=== PATIENT | male | born 1965 | race Caucasian/White ===

== ENCOUNTER 2024-05-07 07:14 | Day surgery (SDC) | payer BC, SELFPAY ==
[2024-05-07] VITALS (12 sets, daily range): BP systolic 124–149; BP diastolic 80–103; PULSE 61–85; RESP 13–17; TEMP 35.9–37; O2SAT 95–100; BMI 24.0
--- OUTSIDE RECORDS SUMMARY | 2024-05-07 07:20 | XMS_ITS | Clinical Summary ---
Author Organization [facility] Address [place], [place] [address] Care Team Providers Care Aviation Technician Name Role Phone Drake Coelho MD Primary Care Provider [phone] Allergies No known active allergies Medications No known medications Active Problems Problem Noted Date Diagnosed Date Routine adult health maintenance 05/16/2018 Overview (05/16/2018): Colonoscopy 04/2018 normal, repeat in 10 years Encounters Date Type Department Care Team Description 04/29/2024 8:50 AM TILE GRINDER Office Visit [facility] [address] [place] [address] Drake Coelho MD Preoperative Exam (Hernia repair 05/07) 04/29/2024 Travel 04/25/2024 Travel 04/01/2024 1:00 PM TILE GRINDER Office Visit [facility] [address] [address] Meli Lopez MD Derm Problem 04/01/2024 Travel 03/28/2024 Travel 03/11/2024 Telephone [facility] [address] [place] [address] Blanca Diallo MD Surgery Scheduled 03/05/2024 12:45 PM TILE GRINDER Nurse/Clinic Staff Only [facility] [address] [place] [address] Immunization/Injecti on (Typhoid) 03/05/2024 Travel 02/29/2024 Travel 02/18/2024 Telephone [facility] [address] [place] [address] Alice Stapleton MD Questions (IN REGARDS TO SHOT TYPHOID) from Last 3 Months Immunizations Name Administration Dates Next Due Hepatitis A (Adult) 12/18/2023,08/11/2014 Influenza, IIV3 (Age >=3 years) 12/03/2012 Tdap 12/03/2012 Typhoid (injectable) 03/05/2024,08/11/2014 Zoster (Shingrix-RZV, recombinant) 06/17/2020, Family History Medical History Relation Name Comments Alcoholism Brother Isidro Dementia Father Lewy Body Diabetes type II Father Hyperlipidemia Father Hypertension Father Heart Disease Maternal Grandfather mi at 79 and from this. Hyperlipidemia Mother Thyroid Disease Mother Cancer-prostate Paternal Grandfather at age 63 from prostate cancer Cancer-breast No Family History Relation Name Status Comments Brother Isidro Daughter 1 symone Alive Daughter 2 anna Alive Father Alive Maternal Grandfather Mother Alive Other bernard Alive Paternal Grandfather Sister 1 Kaley Sister 2 Isabel Alive Son lourdes Alive Social History Tobacco Use Types Packs/Day Years Used Date Smoking Tobacco: Never Smokeless Tobacco: Never Tobacco Cessation:Counseling Given: Yes Alcohol Use Standard Drinks/Week Comments Yes 3 (1 standard drink = 0.6 oz pur e alcohol) PHQ-2 Answer Date Recorded PHQ-2 TOTAL SCORE 0 12/18/2023 Social Connections Answer Date Recorded Do you often feel lonely or isolated from those around you? 0 12/18/2023 Alcohol Use Answer Date Recorded How often do you have a drink containing alcohol ? 3 04/29/2024 How many drinks containing a lcohol do you have on a typical day when you are drinking? 0 04/29/2024 How often do you have five or more drinks on one occasion? 0 04/29/2024 Financial Resource Strain Answer Date R ecorded Difficulty of Paying Living Expenses 3 12/18/2023 Difficulty of Paying Living Expenses Not on file 12/18/2023 Food Insecurity Answer Date Recorded Do you worry your food will run out before you are able to buy more? 1 12/18/2023 Transportation Needs Answer Date Record ed Does lack of transportation keep you from medica l appointments? 1 12/18/2023 Does lack of transportation keep you from work, meetings or getting things that you need? 1 12/18/2023 Housing Stability Answer Date Recorded What is your housing situation today? 1 12/18/2023 Utilities Answer Date Recorded Do you have trouble paying f or utilities (for example, heat, electricity, water, phone)? 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 Not on file Not on file Travel History Travel Start Travel End [place] 04/13/2024 04/17/2024 [place] 04/09/2024 04/13/2024 Obstetrics History Last Filed Vital Signs Vital Sign Reading Time Taken Comments Blood Pressure 124/76 04/29/2024 9:21 AM TILE GRINDER Pulse 74 04/29/2024 8:55 AM TILE GRINDER Temperature 36.3 C (97.4 F) 04/29/2024 8:55 AM TILE GRINDER Respiratory Rate - - Oxygen Saturation 99% 04/29/2024 8:55 AM TILE GRINDER Inhaled Oxygen Concentration - - Weight 77.9 kg (171 lb 11.2 oz) 04/29/2024 8:55 AM TILE GRINDER Height 182 cm (5' 11.65) 04/29/2024 8:55 AM TILE GRINDER Body Mass Index 23.51 04/29/2024 8:55 AM TILE GRINDER Plan of Treatment Upcoming Encounters Date Type Department Care Team (Late st Contact Info) Description 05/07/2024 8:00 AM TILE GRINDER Office Visit [facility] [address] [place] [address] Blanca Diallo MD [address] [place] [address] Health Maintenance Due Date Last Done Comments HIV for age 15-65 08/21/1982 Hepatitis C screening for ag e 18-79 08/21/1985 Pneumococcal series for age 50+ (1 of 1 - PCV) 08/21/2017 Tetanus booster 12/03/2022 12/03/2012 COVID-19 vaccine series (2023- season) 2023 Influenza for age 50-64 11/24/2023 12/03/2012 Depression screening for age 12+ 12/17/2024 12/18/19 24 BMI (ht and wt on same day) for age 18+ 04/29/2025 04/29/2024, 12/18/2023 Colonoscopy through age 75 05/16/202805/16, 05/16/2018, 05/16/2018, Additional history exists Lipids for age 45-75 12/12/2028 12/13/2023, 02/23/2015, 11/26/2012, Additional history exists Tdap Completed 12/03/2012 Zoster (shingles) series for age 50+ Completed 06/17/2020, 03/02/2020 Procedures Procedure Name Priority Date/Time Associated Diagnosis Comments LIPID PANEL W REFLEX MEASURED LDL Routine 12/13/2023 11:02 AM CDT Lipid screening COLONOSCOPY 05/16/2018 8:31 AM TILE GRINDER from Last 3 Months or Most Recently Relevant to Health Maintenance Results * (ABNORMAL) LIPID PANEL W REFLEX MEASURED LDL (12/13/2023 11:02 AM CDT) CHOLESTEROL, TOTAL 214(H) <200 mg/dL [facility] HDL CHOLESTEROL 54 > OR = 40 mg/dL [facility] TRIGLYCERIDES 43 <150 mg/dL [facility] LDL-CHOLESTEROL 147(H) mg/dL (calc) [facility] Comment: Reference range: <100 Desirable range <100 mg/dL for primary prevention; <70 mg/dL for patients with CHD or diabetic patients with > or = 2 CHD risk factors. LDL-C is now calculated using the Bhanu-Kymberly calculation, which is a validated novel method providing better accuracy than the Friedewald equation in the estimation of LDL-C. Bhanu DEVINE et al. PILAR. 2013;310(19): 9126-6576 (http://education.Maintenance Assistant/faq/JWS358) CHOL/HDLC RATIO 4.0 <5.0 (calc) [facility] NON HDL CHOLESTEROL 160(H) <130 mg/dL (calc) [facility] Comment: For patients with diabetes plus 1 major ASCVD risk factor, treating to a non-HDL-C goal of <100 mg/dL (LDL-C of <70 mg/dL) is considered a therapeutic option. Blood BLOOD SPECIMEN / Unknown 12/13/2023 11:02 AM CDT 12/13/2023 11:04 AM CDT Drake Coelho MD CHEMISTRY Final Resu lt [employer] [facility] [address] [place] [address], [employer] [facility] [address] [place] [address] * COLONOSCOPY (05/16/2018 8:31 AM TILE GRINDER) 05/16/2018 8:31 AM TILE GRINDER Narrative Transcriptions Bhanu Hinojosa MD - 05/16/2018 9:04 AM CST Patient Name: Fredi Aden Procedure Date: 05/16/2018 Gender: Male Date of : 1965 Admit Type: Outpatient Procedure: Colonoscopy Proceduralist: Bhanu Hinojosa MD , Lizet Arnold (Nurse) Indications/Pre-Op Diagnosis: Screening for colorectal malignant neoplasm, Last colonoscopy: September 2007 Medications: None Procedure Description: The patient had risks, benefits and alternatives explained to andgave informed consent. The patient had a stable cardiopulmonary status and judged an adequate candidate for conscious sedation. The Colonoscope was passed through the anus and advanced to thececum, identified by appendiceal orifice and ileocecal valve. Thecolonoscopy was performed without difficulty. The patient tolerated the procedure well. The quality of the bowel preparation was good. The ileocecal valve, appendiceal orifice, and rectum were photographed. Complications: No immediate complications. Estimated Blood Loss & Specimen: Estimated blood loss: none. Specimen collected - None Findings: The perianal and digital rectal examinations were normal. The entire examined colon appeared normal on direct and retroflexion views. Impressions/Post-Op Diagnosis: - The entire examined colon is normal on direct and retroflexionviews. - No specimens collected. Recommendation: - Patient has a contact number available for emergencies. The signsand symptoms of potential delayed complications were discussed with the patient. Return to normal activities tomorrow. Written discharge instructions were provided to the patient. - Resume previous diet. - Continue present medications. - Repeat colonoscopy in 10 years for screening purposes. Moderate Sedation: None Bhanu Hinojosa MD 05/16/2018 9:04:10 AM This report has been signed electronically. Note Initiated On: 05/16/2018 8:31 AM Procedure Code(s): --- Professional --- 32440, Colonoscopy, flexible; diagnostic, including collection of specimen(s) bybrushing or washing, when performed (separateprocedure) Diagnosis Code(s): --- Professional --- Z12.11, Encounter for screening formalignant neoplasm of colon CPT copyright 2017 [employer] [employer]. All rights reserved. The codes documented in this report are preliminary and upon insurance coder reviewmay be revised to meet current compliance requirements. Scope In: 8:41:44 AM Scope Withdrawal Time 0 hours 8 minutes 36 seconds Scope Out: 8:56:17 AM us Bhanu Hinojosa MD PROCEDURE ORD Final Res ult from Last 3 Months or Most Recently Relevant to Health Maintenance Insurance [facility] Care Teams Aviation Technician Relationship Specialty Start Date End Date Drake Coelho [place] [address] [place] [address] PCP - General Family Practice 10/08/12
[2024-05-07] MEDS: 0.9 % SODIUM CHLORIDE 500 ML 500 ML 100 ML IV ×2 (07:30→09:42)
[2024-05-07] MEDS: SODIUM CHLORIDE 0.9 % (FLUSH) 10 ML SYRINGE IVF (07:49)
[2024-05-07] MEDS: CEFAZOLIN 1 GM inj IVP (09:25)
--- NOTE | 2024-05-07 09:28 | W.ANESCHARGE ---
Anesthesia Charges Start Date/Time Anesthesia Start Date: 05/07/24 Anesthesia Start Time: 09:00 Stop Date/Time Anesthesia Stop Date: 05/07/24 Anesthesia Stop Time: 11:30 Coding CPT Codes CPT Codes: ANESTH SURGERY OF ABDOMEN - 36695 ([id number]) P1 - NORMAL HEALTHY PATIENT, QK - PRODUCT ASSEMBLER 2-4 CNCRNT YOSEPH PROC, QX - SENIOR C SOFTWARE DEVELOPER SVJacinta W/ MED DIRECTION
[2024-05-07] MEDS: 0.9 % SODIUM CHLORIDE 100 ml INJECTION (09:42)
[2024-05-07] MEDS: BUPIVACAINE 0.25% 30 ML INJECTION (11:10)
--- NOTE | 2024-05-07 11:31 | W.PM.H&PU ---
History & Physical Update History & Physical Update H&P Reviewed and patient assessed: The following changes are noted below H&P Updates: Since patient was seen in clinic, he developed discomfort and a bulge in his right groin. On exam today he does indeed have a right inguinal hernia as well. We discussed bilateral hernia repair and the patient wishes to proceed.
--- NOTE | 2024-05-07 11:32 | PM.GSPRC ---
Operative Note Date of procedure: 05/07/24 Pre-op diagnosis: Bilateral inguinal hernia Post-op diagnosis: Same Type of Procedure: Laparoscopic bilateral inguinal hernia Indications: The patient is a 58-year-old male who presented to clinic with a left groin bulge. He was found to have a left inguinal hernia. Plans were made for repair and in the interim, he developed a uncomfortable bulge in his right groin. On the morning of surgery, he was indeed found to have a hernia on the right side and after discussion he elected to proceed with bilateral hernia repair. Procedure Description: After discussing the risks and benefits of the procedure, the patient signed informed consent.? The operative site was marked and the patient was brought to the operating room and placed on the operating table in supine position.? Care was taken to pad the patient's pressure points.?? The patient was then intubated by anesthesia.?? The operative site was then prepped and draped in the usual sterile fashion.? A time-out was then performed. A curvilinear incision was made below the umbilicus. Dissection was carried down to subcutaneous tissue until the anterior rectus fascia was encountered. This was incised off the midline to the right. The rectus muscle fibers were then retracted exposing the posterior fascia. A port with a dissecting balloon was then introduced into the pre-preperitoneal space. This was inflated under direct vision. The balloon was deflated, removed, and a 10 mm working port was placed. The space was insufflated and a 10 mm 30-degree scope was then advanced into the space. Two 5 mm ports were placed in the midline under direct vision. Dissection began on the right side. Johny's ligament and the pubic bone were exposed medially. Following this, dissection was carried out laterally. An indirect hernia sac was noted. The sac was dissected free from the cord structures using a combination of sharp and blunt dissection. The sac was fairly scarred to the cord structures and a small tear in the peritoneum. Once the sac was completely reduced, the pubic bone was dissected on the patient's left as well. A piece of Bard 3DMax mesh for the right side was placed into the abdomen. This was positioned with the marker pointed medially, overlapping midline. A Tacker was used to attach the mesh medially at Johny's ligament and 1 tack laterally with care to avoid the epigastric vessels and stay above the inguinal ligament. The pneumoperitoneum that had accumulated from the tear in the peritoneum was evacuated with a soft catheter and the peritoneal opening was clipped closed with 5 mm clips Attention was turned to the opposite side where similarly, Johny's ligament had previously been exposed during dissection on the right. An indirect hernia sac was noted and this was reduced. Again, the hernia sac was noted to be densely adherent to the cord structures. A tear of the peritoneum was noted. The sac was able to be dissected free completely from the cord structures. Piece of Bard 3DMax mesh for the left side was then advanced into the abdomen and secured with a tack medially at Johny's ligament, again overlapping the mesh at the midline. Through the small peritoneal opening, I deflated any accumulated pneumoperitoneum and again clipped this closed with 5 mm clips. Once this was completed, the hernia sacs were ensured to be on top of the mesh and the preperitoneal space was desufflated under direct vision to ensure the mesh laid flat. 15 mL of 0.5% Marcaine were instilled into the preperitoneal space through a port. The ports were removed. The fascia from the infraumbilical port was closed with 0 Vicryl. The skin incisions were closed with absorbable subcuticular suture. Sterile dressings were then applied. The scrotum was examined to ensure that both testicles were down. Instrument sponge and needle counts were correct at the end of the case. The patient was then woken and transported to the recovery area in stable condition. ? The patient tolerated the procedure well. Findings: Bilateral indirect inguinal hernias Anesthesia: GETA Surgeon: Blanca Diallo MD Estimated blood loss (mL): 5 Condition: stable Disposition: PACU
--- NOTE | 2024-05-07 11:36 | W.ANESCHARGE ---
Anesthesia Charges Start Date/Time Anesthesia Start Date: 05/07/24 Anesthesia Start Time: 09:00 Stop Date/Time Anesthesia Stop Date: 05/07/24 Anesthesia Stop Time: 11:30 Coding CPT Codes CPT Codes: ANESTH SURGERY OF ABDOMEN - 56774 ([id number]) P1 - NORMAL HEALTHY PATIENT, QX - BUILDING SURVEYOR JOSE W/ MED DIRECTION, QK - PRIVATE HOUSEHOLD WORKER 2-4 CNCRNT ANES PROC
[2024-05-07] MEDS: KETOROLAC 15 MG/ML inj IVP (12:06)
== END 2024-05-07 13:12 | disposition home or self-care (01) ==
PROVIDERS: PCP Family Medicine; Visit Provider Surgery
PROC: (CPT 49650; principal; 2024-05-07 08:30)
DX: K40.20 Bilateral inguinal hernia, without obstruction or gangrene, not specified as recurrent (principal)
CPT/HCPCS: 49650; 00860; C1781; J0330; J0665; J0690; J1100; J1171; J1885; J2405; J2704; J2710; J3010; J3490; J7030